=== PATIENT | male | born 1965 | race Caucasian/White ===

== ENCOUNTER 2021-12-22 10:23 | Outpatient (CLI) | payer OTHER, SELFPAY ==
--- NOTE | ~2021-12-22 | XR_ITS ---
EXAM: XR abdomen/kub 1V DATE: 12/22/2021 10:44 HISTORY: RIGHT URETERAL STONE . COMPARISON: CT abdomen and pelvis, same date. FINDINGS: Normal bowel gas pattern. No organomegaly. No abnormal abdominal calcification. Regional b ones and soft tissues normal for age. IMPRESSION: Normal abdominal radiograph findings. Refer to the concurrent CT abdomen and pelvis for a dditional detail. Reviewed, dictated and finalized at location [facility]. IMPRESSION: Normal abdominal radiograph findings. Refer to the concurrent CT ab domen and pelvis for additional detail.
--- NOTE | ~2021-12-22 | CT_ITS ---
EXAMINATION: CT abdomen pelvis wo con DATE: 12/22/2021 10:53 INDICATION: Right ureteral stone. Hematuria. TECHNIQUE: Computed tomography (CT) of the abdomen and pelvis was performed without intravenous contr ast. Automated exposure control and iterative reconstruction technique were employed. Exam dose: 356 .64 mGy-cm total exam DLP. COMPARISON: 12/22/2021 KUB FINDINGS: The lung bases are clear. Normal heart size. No pericardial or pleural effusion. The gallbladder is contracted. No bile duct or pancreatic duct dilatation. No hepatic, splenic, pancr eatic, adrenal or renal space-occupying mass lesion is evident on this limited noncontrast examinatio n. There is a punctate nonobstructing lower pole right renal calculus. 2.7 mm nonobstructing upper pole left renal calculus. No ureteral calculus or hydroureteronephrosis is noted on either side. The urina ry bladder is unremarkable. No bladder calculus or bladder wall thickening. There is mild prostate enlargement and minimal prostate calcification. Normal caliber of the abdominal aorta. No intraperitoneal or retroperitoneal or pelvic mass lesion or adenopathy or ascites. Normal appendix. No bowel obstruction or intraperitoneal free air. Small fat-containing left inguinal hernia. Small fat-containing umbilical hernia. Moderately severe degenerative disc disease at L4-5. No suspicious osteolytic or osteoblastic lesions . IMPRESSION: Very small calculus of each kidney; no ureteral calculus or hydroureteronephrosis on eit her side Mild prostate enlargement and calcification Normal appendix Small fat-containing umbilical and left inguinal hernias Reviewed, dictated and finalized at [facility]. Reviewed, dictated and finalized at location B. IMPRESSION: Very small calculus of each kidney; no ureteral calculus or hydrou reteronephrosis on either side Mild prostate enlargement and calcification Normal appendix Small fat-containing umbilical and left inguinal hernias
== END 2021-12-22 10:24 | disposition home or self-care (01) ==
PROVIDERS: PCP Internal Medicine Infectious Disease; Visit Provider Nurse Practitioner Adult Health
DX: N20.1 Calculus of ureter (principal); K42.9 Umbilical hernia without obstruction or gangrene; K40.90 Unilateral inguinal hernia, without obstruction or gangrene, not specified as recurrent
CPT/HCPCS: 74018; 74176